=== PATIENT | female | born 1985 ===

== ENCOUNTER 2023-02-27 08:16 | Emergency (ER) | payer BC, OTHER ==
[2023-02-27 08:34] VITALS: BP 133/87; PULSE 93; RESP 20; TEMP 98.2; BMI 44.4
[2023-02-27] MEDS ORDERED: ALBUTEROL SO4 2.5/IPRATROPIUM 0.5 INH SOL 3 ML VIAL.NEB. NEB ONE (08:40)
== END 2023-02-27 09:41 | disposition home or self-care (01) ==
LOC: FER 08:16
PROC: 3E0F7GC Introduction of Other Therapeutic Substance into Respiratory Tract, Via Natural or Artificial Opening (ICD-10-PCS; principal; 2023-02-27)
DX: R05.1 Acute cough (principal)
CPT/HCPCS: 71045-TC-FY; 99283-25